=== PATIENT | female | born 1995 ===

== ENCOUNTER → 2017-02-17 | Outpatient (CLI) | payer OTHER | LOC: COL.RAD 07:23 | DX: R42 Dizziness and giddiness (principal); R51 Headache ==

== ENCOUNTER 2018-05-23 12:06 | Emergency (ER) | payer OTHER ==
[~2018-05-23] VITALS: Ht 162 cm; Wt 52.3 kg
[2018-05-23 12:16] VITALS: BP 113/66; TEMP 100.1
[2018-05-23 13:33] VITALS: PULSE 82
== END 2018-05-23 13:34 | disposition home or self-care (01) ==
LOC: COL.ER 12:06
DX: J00 Acute nasopharyngitis [common cold] (principal); H69.90 Unspecified Eustachian tube disorder, unspecified ear; F17.290 Nicotine dependence, other tobacco product, uncomplicated